=== PATIENT | male | born 1970 | race Caucasian/White ===

== ENCOUNTER 2018-07-15 09:40 | Day surgery (SDC) | payer BC ==
[~2018-07-15] VITALS: Ht 182.9 cm; Wt 110.0 kg
[2018-07-15] MEDS ORDERED: HCTZ 25MG TAB25 MG PO (09:59)
[2018-07-15] MEDS ORDERED: TOPROL XL 25MG25 MG PO (09:59)
[2018-07-15] MEDS ORDERED: COZAAR100 MG PO (10:00)
[2018-07-15] MEDS ORDERED: [UNRECOGNIZED DRUG - OTHER] PO (10:00)
[2018-07-15] MEDS ORDERED: LEXAPRO20 MG PO (10:00)
[2018-07-15 10:01] VITALS: BP 115/86; PULSE 64; TEMP 98.4
[2018-07-15] MEDS ORDERED: [UNRECOGNIZED DRUG - OTHER] PO (10:01)
[2018-07-15] MEDS ORDERED: OMEGA-31 SGL PO (10:01)
[2018-07-15 12:00] VITALS: BP 102/83; PULSE 70; TEMP 98.3
--- NOTE | 2018-07-15 12:00 | NUR ---
Pt returned via cart to [facility]. Ambulated with steady gait to recliner in bay. present. VSS-see flowsheet. Pt given coffee and jello per request. Call light in reach.
[2018-07-15 12:15] VITALS: BP 105/74; PULSE 70
[2018-07-15 12:25] VITALS: BP 106/77; PULSE 56
[2018-07-15 12:45] VITALS: BP 112/68; PULSE 53
[2018-07-15 12:54] VITALS: BP 104/66; PULSE 64
--- NOTE | 2018-07-15 12:54 | NUR ---
Pt tolerated jello and coffee. VSS-see flowsheet. Discharge teaching completed with pt and spouse, Bonnie. Verbalized understanding. IV removed, pt instructed to dress at this time.
--- NOTE | 2018-07-15 13:00 | NUR ---
Pt taken via wheelchair to exit of facility for dc home in private vehicle.
== END 2018-07-15 13:00 | disposition home or self-care (01) ==
LOC: SDCO 09:40
DX: Z12.11 Encounter for screening for malignant neoplasm of colon (principal); Z86.010 Personal history of colon polyps; K64.0 First degree hemorrhoids; I10 Essential (primary) hypertension; Z90.81 Acquired absence of spleen; Z90.411 Acquired partial absence of pancreas; Z87.11 Personal history of peptic ulcer disease
CPT/HCPCS: J2250; J2405; J3010; J7030